=== PATIENT | female | born 2000 | race Asian ===

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

== ENCOUNTER 2018-06-13 06:33 | Emergency (ER) | payer BC, MEDICAID ==
[~2018-06-13] VITALS: Ht 162.6 cm; Wt 77.1 kg
[2018-06-13 06:41] VITALS: BP 134/83
[2018-06-13] MEDS ORDERED: KETOROLAC TROMETH 60MG/2ML VIAL IM ONE (08:30)
== END 2018-06-13 09:55 | disposition home or self-care (01) ==
LOC: ER 06:33
DX: S03.00XA Dislocation of jaw, unspecified side, initial encounter (principal); J45.909 Unspecified asthma, uncomplicated; Z87.442 Personal history of urinary calculi; X58.XXXA Exposure to other specified factors, initial encounter; Y93.89 Activity, other specified; Y99.8 Other external cause status; Y92.89 Other specified places as the place of occurrence of the external cause
CPT/HCPCS: 70486; 81025; 96372; 99284; J1885

== ENCOUNTER 2018-11-17 23:14 | Emergency (ER) | payer BC, MEDICAID ==
[~2018-11-17] VITALS: Ht 162.6 cm; Wt 98.4 kg
[2018-11-18 00:19] LABS: Basophils # (auto) 0.1 uL; Basophils % (auto) 0.7 % (0.0-2.0); Eosinophils # (auto) 0.1 uL; Eosinophils % (auto) 0.5 % (0.0-7.0); Hematocrit 36.5 % (36.0-46.0); Lymphocytes # (auto) 1.5 uL; Mean Corpuscular Hemoglobin 27.1 pg (28.0-32.0); Mean Corpuscular Volume 82.2 fL (80.0-100.0); Monocytes # (auto) 0.6 uL; Monocytes % (auto) 5.3 % (0.0-12.0); Neutrophils # (auto) 8.6 uL; Neutrophils % (auto) 79.5 % (37.0-80.0); Platelet Count (auto) 266 10^3/uL (140-450); Red Blood Cells 4.44 10^6/uL (4.0-5.20); Red Cell Distribution Width 14.6 % (11.8-14.3); White Blood Cell 10.8 10^3/uL (4.4-10.8)
[2018-11-18 00:33] LABS: Chloride 105 mmol/L (98-107); Potassium 3.6 mmol/L (3.5-5.1); Sodium 136 mmol/L (136-145)
[2018-11-18 00:37] LABS: Albumin 3.5 g/dL (3.4-5.0); Amylase 40 U/L (25-115); Anion Gap 8 (5-15); Blood Urea Nitrogen 10 mg/dL (7-18); Calcium 8.7 mg/dL (8.5-10.1); Carbon Dioxide 23 mmol/L (21-32); Glucose 106 mg/dL (74-106); Lipase 72 U/L (73-393)
[2018-11-18 00:42] LABS: Alanine Aminotransferase 17 U/L (13-56); Alkaline Phosphatase 49 U/L (45-117); Aspartate Aminotransferase 9 U/L (15-37); BUN/Creatinine Ratio 15.4; GFR African American 149 mL/min; GFR Non-African American 124 mL/min; Total Protein 7.2 g/dL (6.4-8.2)
[2018-11-18 00:56] LABS: Bilirubin, Total 0.2 mg/dL (0.2-1.0)
[2018-11-18 01:49] LABS: Urine Bacteria MOD /hpf (None Seen); Urine Blood 2+ /uL (Negative); Urine Specific Gravity 1.016 (1.001-1.035); Urine WBC 237 /hpf (0 - 5)
[2018-11-18 07:34] VITALS: BP 97/57
== END 2018-11-18 08:15 | disposition home or self-care (01) ==
LOC: ER 23:18
DX: O23.41 Unspecified infection of urinary tract in pregnancy, first trimester (principal); O99.511 Diseases of the respiratory system complicating pregnancy, first trimester; J45.909 Unspecified asthma, uncomplicated; Z3A.11 11 weeks gestation of pregnancy
CPT/HCPCS: 36415; 76801; 76817; 80053; 81001; 82150; 83690; 84484; 84702; 85025